=== PATIENT | male | born 1965 | race Caucasian/White ===

== ENCOUNTER 2016-09-12 07:04 | Day surgery (SDC) | payer OTHER ==
--- NOTE | 2016-09-05 13:03 | HISTORY AND PHYSICAL E ---
History and Physical NAME: SKYLER CASILLAS : 1965 AGE: 51Y ADMITTED: 09/12/2016 ROOM: ADMIT DATE: 09/12/2016 REFERRING: Sanam. CHIEF COMPLAINT: Colon screening. SOCIAL HISTORY: Patient does not smoke. Drinks rarely. PAST SURGICAL HISTORY: 1. Left hip replacement. 2. Left shoulder surgery. 3. Tonsillectomy. REVIEW OF SYSTEMS: CARDIAC: Hypertension. Borderline high cholesterol. ENDOCRINE: Diabetes type 2. HEAD, EYES, EARS, NOSE AND THROAT: Hearing loss. GASTROINTESTINAL: Reflux. Colon screen. ONCOLOGY/HEMATOLOGY: Negative. NEUROLOGIC: Negative. FAMILY HISTORY: Father had diabetes. Mom is alive. PHYSICAL EXAMINATION: GENERAL: Pleasant, alert, oriented in no acute distress. VITAL SIGNS: Blood pressure 130/80. Pulse 80. Respirations 18. Temperature is 98. HEAD, EYES, EARS, NOSE AND THROAT: Normal. NECK: Supple. LUNGS: Clear. ABDOMEN: Soft. NEUROLOGIC EXAM: Negative. MEDICATIONS: 1. Losartan. 2. Janumet. 3. Nexium. 4. Cialis. 5. Levitra. CONCLUSIONS: Colon screening. PLAN: Colonoscopy. DICTATING PHYSICIAN: KENIA MOLINA M.D. [id number] PHY#: [id number] ID: [id number] JOB#: [id number] ACCT: [id number] cc:KENIA MOLINA M.D. >
--- NOTE | 2016-09-05 13:05 | HISTORY AND PHYSICAL E ---
History and Physical NAME: SKYLER CASILLAS : 1965 AGE: 51Y ADMITTED: 09/12/2016 ROOM: REFERRING PHYSICIAN: Luis HISTORY OF PRESENT ILLNESS: A 51-year-old patient has reflux, for colon screening. SOCIAL HISTORY: . Drinks occasionally. Does not smoke. PAST SURGICAL HISTORY: Left hip and left shoulder. REVIEW OF SYSTEMS: CARDIAC: Hypertension, high cholesterol. ENDOCRINE: Diabetes 2. GASTROINTESTINAL: Colon screening and reflux. ONCOLOGY/HEMATOLOGY: Negative. NEUROLOGY: Negative. FAMILY HISTORY: Father had diabetes. Mom is alive. PHYSICAL EXAMINATION: VITAL SIGNS: Blood pressure 130/80. Afebrile. Temp is 98. HEAD, EYES, EARS, NOSE, THROAT: Normal. NECK: Supple. LUNGS: Clear. ABDOMEN: Soft. NEUROLOGIC: Negative. MEDICATIONS: 1. Janumet. 2. Cholesterol medicine. 3. Losartan. 4. Nexium. 5. Testosterone. 6. Fish oil. 7. Cialis. 9. Naproxen. 10. Levitra. CONCLUSION: Colon screening. PLAN: Colonoscopy. DICTATING PHYSICIAN: KENIA MOLINA M.D. [id number] PHY#: [id number] ID: [id number] JOB#: [id number] ACCT: [id number] cc:[facility] KENIA HILL M.D. >
[2016-09-12] MEDS ORDERED: LIDOCAINE 2% JELLY 30 ML TUBE ONE (07:32)
[2016-09-12] MEDS ORDERED: NALOXONE HCL INJ/PF 0.4 MG/1 ML SDV ONE (07:32)
[2016-09-12] MEDS ORDERED: PROMETHAZINE HCL INJ 25 MG/1 ML VIAL ONE (07:32)
[2016-09-12] MEDS ORDERED: GLYCOPYRROLATE INJ 0.4 MG/2 ML VIAL ONE (07:32)
[2016-09-12] MEDS ORDERED: ONDANSETRON HCL INJ/PF 4 MG/2 ML SDV ONE (07:32)
[2016-09-12] MEDS ORDERED: FLUMAZENIL INJ 0.5 MG/5 ML VIAL IV ONE (07:33)
[2016-09-12] MEDS ORDERED: GLUCAGON,HUMAN RECOMB 1 MG INJ ONE (07:33)
[2016-09-12] MEDS ORDERED: EPINEPHRINE INJ 1 MG/10 ML DISP.SYRIN ONE (07:33)
[2016-09-12] MEDS: MIDAZOLAM 2 MG/2 ML INJ ONE ×2 (08:12→08:17)
[2016-09-12] MEDS: FENTANYL CITRATE INJ/PF 100 MCG/2 ML AMPUL ONE ×2 (08:14→08:19)
[2016-09-12 09:59] VITALS: BP 118/65
--- NOTE | 2016-09-12 12:58 | OPERATIVE REPORT E ---
Operative Report NAME: SKYLER CASILLAS : 1965 AGE: 51Y DATE OF SURGERY: 09/12/2016 ROOM: PREOPERATIVE DIAGNOSIS: Colon screening. POSTOPERATIVE DIAGNOSES: 1. A 4 mm sessile polyp, mid transverse colon, removed by 2 biopsies. 2. A 2 mm polyp in rectosigmoid junction, small to biopsy, benign looking. 3. Mild external hemorrhoids. PROCEDURE: Colonoscopy. SURGEON: KENIA MOLINA M.D. ANESTHESIA: Versed 6 and fentanyl 150. TISSUE REMOVED OR ALTERED: Biopsy of polyp in mid ascending colon. PROCEDURE: Rectal exam shows mild external hemorrhoids. Rectum shows 1 mm polyp, small to biopsy. Rectosigmoid junction, 2 mm hyperplastic polyp, small to biopsy. Descending colon moderate amount of stool, otherwise, normal. Transverse colon, moderate amount of stool, normal. Mid ascending colon 4 mm sessile polyp, most like serous adenoma, sessile, biopsy obtained. Cecum normal. Scope withdrawn from cecum, ascending, transverse, descending, sigmoid all the way to the rectum. CONCLUSION: 1. A 4 mm ascending colon polyp. Biopsy obtained. 2. Sigmoid polyp 2 mm, small to biopsy. 3. Anal polyp 1 mm. 4. Mild external hemorrhoids. PLAN: Hold naproxen and aspirin. Non-steroidal for 5 days. Awaiting biopsy results. Consider age and followup colonoscopy in 9 months to a year pending biopsy results. DICTATING PHYSICIAN: KENIA MOLINA M.D. [id number] PHY#: [id number] ID: [id number] JOB#: [id number] ACCT: [id number] cc:[facility] KENIA MOLINA M.D. >
--- NOTE | 2016-09-12 12:58 | DISCHARGE SUMMARY E ---
Discharge Summary NAME: SKYLER CASILLAS : 1965 AGE: 51Y ADMITTED: 09/12/2016 DISCHARGED: 09/12/2016 HOSPITAL COURSE: The patient is a 51-year-old male known to have reflux and type-2 diabetes. The patient does have a history of reflux and total left hip surgery. No known drug allergies. Today's colonoscopy was successful to the cecum. He did a 4 mm ascending colon polyp removed by 2 biopsies. It is most likely sessile serous adenoma, pending biopsy results. DISCHARGE PLAN: 1. Soft diet. 2. Hold aspirin and nonsteroidal for 5 days. 3. Consider followup colonoscopy in 9 months to a year. DICTATING PHYSICIAN: KENIA MOLINA M.D. [id number] PHY#: [id number] ID: [id number] JOB#: [id number] ACCT: [id number] cc:[facility] KENIA MOLINA M.D. >
== END 2016-09-12 10:06 | disposition home or self-care (01) ==
LOC: END 07:04
PROVIDERS: ATTEND Specialist
PROC: 0DBK8ZX Excision of Ascending Colon, Via Natural or Artificial Opening Endoscopic, Diagnostic (ICD-10-PCS; principal; 2016-09-12 08:00)
DX: Z12.11 Encounter for screening for malignant neoplasm of colon (principal); D12.2 Benign neoplasm of ascending colon; D12.5 Benign neoplasm of sigmoid colon; K64.8 Other hemorrhoids; K62.0 Anal polyp; E11.9 Type 2 diabetes mellitus without complications; K21.9 Gastro-esophageal reflux disease without esophagitis; I10 Essential (primary) hypertension; Z96.642 Presence of left artificial hip joint; H91.90 Unspecified hearing loss, unspecified ear; Z79.84 Long term (current) use of oral hypoglycemic drugs; Z79.899 Other long term (current) drug therapy
CPT/HCPCS: 45380; 82962; 88305 ×2; J2250; J3010; J1610; J2405; J0171; J2310; J2550; J3490